=== PATIENT | female | born 1975 | race Two or more races ===

== ENCOUNTER 2022-01-10 04:36 | Day surgery (SDC) | payer OTHER ==
[2022-01-08 18:09] VITALS: BMI 40.8
[~2022-01-10 04:36] MED LIST: CEFAZOLIN 2 GM in DEXTROSE 5%-WATER - 100 ML IVPB ONE; PHENAZOPYRIDINE HCL 100 MG TABLET (FP) PO ONE
[2022-01-10] MEDS ORDERED: BUPIVACAINE HCL/PF 0.5% (5MG/ML) 10 ML VIAL ONE (07:05)
[2022-01-10] MEDS ORDERED: BUPIVACAINE LIPOSOME/PF (EXPAREL) 266 MG/20 ML VIAL ONE (07:05)
[2022-01-10] MEDS ORDERED: MIDAZOLAM HCL 2 MG/2 ML SINGLE DOSE VIAL ONE ×2 (07:06)
[2022-01-10] MEDS ORDERED: LIDOCAINE HCL 2% JELLY (5 ML/TUBE) ONE (07:22)
[2022-01-10] MEDS ORDERED: GLYCOPYRROLATE 0.2 MG/1 ML VIAL ONE (07:22)
[2022-01-10] MEDS ORDERED: DEXAMETHASONE SOD PHOSPHATE 4 MG/1 ML VIAL ONE (07:22)
[2022-01-10] MEDS ORDERED: LIDOCAINE HCL/PF 2% SDV 5ML VIAL ONE (07:22)
[2022-01-10] MEDS ORDERED: ROCURONIUM BROMIDE 50 MG/5 ML SYRINGE ONE (07:23)
[2022-01-10] MEDS ORDERED: PROPOFOL 20 ML ONE ×3 (07:23→09:23)
[2022-01-10] MEDS ORDERED: SUCCINYLCHOLINE CHLORIDE 200 MG/10 ML SYRINGE ONE (07:23)
[2022-01-10] MEDS ORDERED: NEOSTIGMINE METHYLSULFATE 0.5 MG/ML - 10 ML MDV ONE (07:24)
[2022-01-10] MEDS ORDERED: ceFAZolin SODIUM 1 GM VIAL IVPB ONE (08:05)
[2022-01-10] MEDS ORDERED: DESFLURANE GAS 240 ML BOTTLE IH ONE (09:24)
[2022-01-10] MEDS ORDERED: oxyCODONE HCL 5 MG TABLET PO PRN (10:13)
[2022-01-10] MEDS ORDERED: BISACODYL 5 MG TABLET.DR (FP) PO PRN (10:13)
[2022-01-10] MEDS ORDERED: IBUPROFEN 800 MG/8 ML IJ IVPB PRN (10:13)
[2022-01-10] MEDS ORDERED: ONDANSETRON 4 MG/2 ML VIAL IVPUSH PRN (10:13)
[2022-01-10] MEDS ORDERED: SIMETHICONE 80 MG TAB.CHEW (FP) PO PRN (10:13)
[2022-01-10] MEDS ORDERED: DOCUSATE SODIUM 100 MG CAPSULE (FP) PO PRN (10:13)
[2022-01-10] MEDS ORDERED: ACETAMINOPHEN 325 MG TABLET (FP) PO PRN (10:13)
[2022-01-10] MEDS: LACTATED RINGERS SOLUTION 1,000 ML IV SCH (11:00)
[2022-01-10] MEDS: oxyCODONE HCL 5 MG TABLET PO PRN (17:01)
[2022-01-10] MEDS ORDERED: ceFAZolin SODIUM 1 GM VIAL ONE (17:12)
[2022-01-10] MEDS ORDERED: SODIUM CHLORIDE 50 ML IVPB ONE (17:12)
[2022-01-10] MEDS: CEFAZOLIN 1 GM in SODIUM CHLORIDE 50 ML IVPB SCH (17:18)
[2022-01-10 19:43] LABS: HEMOGLOBIN 11.7 GM/dL (10.7-15.3); MCH 29.8 pg (25.7-33.7); MCHC 32.6 g/dl (32.0-36.0); MEAN CELL VOLUME 91.4 fl (80-96); MEAN PLT VOLUME 9.4 fl (7.5-11.1); PLATELET COUNT 266 10^3/uL (134-434); RBC 3.94 M/mm3 (3.60-5.2); RDW 13.9 % (11.6-15.6); WHITE BLOOD COUNT 10.9 K/mm3 (4.0-10.0)
[2022-01-10 20:16] LABS: CALCIUM 9.3 mg/dL (8.5-10.1)
[2022-01-10 20:17] LABS: BLOOD UREA NITROGEN 18.7 mg/dL (7-18)
[2022-01-10 20:20] LABS: CREATININE 1.1 mg/dL (0.55-1.3)
[2022-01-11] MEDS ORDERED: SODIUM CHLORIDE 50 ML IVPB ONE ×2 (01:47→09:50)
[2022-01-11] MEDS ORDERED: ceFAZolin SODIUM 1 GM VIAL ONE ×2 (01:47→09:49)
[2022-01-11] MEDS: CEFAZOLIN 1 GM in SODIUM CHLORIDE 50 ML IVPB SCH ×2 (02:17→09:53)
[2022-01-11] MEDS: LACTATED RINGERS SOLUTION 1,000 ML IV SCH (02:25)
[2022-01-11 09:45] LABS: HEMATOCRIT 32.6 % (32.4-45.2); HEMOGLOBIN 10.7 GM/dL (10.7-15.3); MCH 29.6 pg (25.7-33.7); MCHC 32.7 g/dl (32.0-36.0); MEAN CELL VOLUME 90.5 fl (80-96); MEAN PLT VOLUME 9.4 fl (7.5-11.1); PLATELET COUNT 235 10^3/uL (134-434); RDW 13.7 % (11.6-15.6); WHITE BLOOD COUNT 12.5 K/mm3 (4.0-10.0)
[2022-01-11] MEDS: oxyCODONE HCL 5 MG TABLET PO PRN (09:52)
[2022-01-11] MEDS ORDERED: LOSARTAN POTASSIUM 50 MG TABLET PO SCH (10:00)
[2022-01-11] MEDS ORDERED: ENOXAPARIN NA (PORCINE) 40 MG/0.4 ML DISP.SYRIN SQ SCH (10:00)
[2022-01-11] MEDS ORDERED: amLODIPine BESYLATE 5 MG TABLET (FP) PO SCH (10:00)
[2022-01-11 10:02] LABS: CALCIUM 9.4 mg/dL (8.5-10.1)
[2022-01-11 10:03] LABS: BLOOD UREA NITROGEN 14.5 mg/dL (7-18)
[2022-01-11 10:07] LABS: CREATININE 0.9 mg/dL (0.55-1.3)
[2022-01-11 13:09] VITALS: BP 129/84; PULSE 66; TEMP 98.4
== END 2022-01-11 11:50 | disposition home or self-care (01) ==
LOC: JASUSAT 04:36 → J8W 12:18 → JASUSAT 01-11 11:50
PROVIDERS: ATTEND Obstetrics & Gynecology
PROC: 8E0W4CZ Robotic Assisted Procedure of Trunk Region, Percutaneous Endoscopic Approach (ICD-10-PCS; 2022-01-10)
PROC: 0UT94ZZ Resection of Uterus, Percutaneous Endoscopic Approach (ICD-10-PCS; principal; 2022-01-10 07:30)
PROC: 0UT64ZZ Resection of Left Fallopian Tube, Percutaneous Endoscopic Approach (ICD-10-PCS; 2022-01-10 07:30)
DX: D25.9 Leiomyoma of uterus, unspecified (principal); N72 Inflammatory disease of cervix uteri; D28.2 Benign neoplasm of uterine tubes and ligaments
CPT/HCPCS: 58571; S2900; 36415; 80048; 85027; 86850; 86900; 86901; 88302-TC; 88304-TC; 88307-TC; 94760